=== PATIENT | male | born 1960 | race African-American/Black ===

== ENCOUNTER 2016-12-22 22:20 | Emergency (ER) | payer MEDICARE ==
[2016-12-22 22:35] VITALS: BP 152/99
[2016-12-23] MEDS ORDERED: HYDROCODONE/ACETAMINOPHEN 5-325 MG 6 TAB/DSPK PO PRN (00:05)
[2016-12-23] MEDS ORDERED: PENICILLIN V POTASSIUM 500 MG TABLET PO ONE (00:05)
[2016-12-23] MEDS ORDERED: OXYCODONE-ACETAMINOPHEN 5-325 MG TABLET PO ONE (00:05)
--- NOTE | 2016-12-23 00:06 | ER Document Report ---
ED Oral Problem - General Chief Complaint: Toothache Stated Complaint: TOOTHACHE Notes: Patient is a 48-year-old male that comes emergency department for chief complaint of toothache, states has been worsening for several days, states he has known dental caries with fillings that have fallen out specifically in the tooth is hurting in the left upper area in his mouth. Pain radiates to the left ear. Patient denies sore throat, fever, vomiting, neck pain. TRAVEL OUTSIDE OF THE [place] IN LAST 30 DAYS: No - Related Data Allergies/Adverse Reactions: No Known Allergies Allergy (Verified 10/29/15 11:45) Past Medical History - General Information source: Patient - Social History Smoking Status: Never Smoker Cigarette use (# per day): No Chew tobacco use (# tins/day): No Frequency of alcohol use: None Drug Abuse: None Lives with: Family Family History: Reviewed & Not Pertinent Patient has suicidal ideation: No Patient has homicidal ideation: No - Past Medical History Cardiac Medical History: Reports: Hx Hypercholesterolemia, Hx Hypertension Endocrine Medical History: Reports: Hx Diabetes Mellitus Type 2 Renal/ Medical History: Denies: Hx Peritoneal Dialysis - Immunizations Hx Diphtheria, Pertussis, Tetanus Vaccination: No Review of Systems - Review of Systems Constitutional: No symptoms reported EENT: See HPI Cardiovascular: No symptoms reported Respiratory: No symptoms reported Gastrointestinal: No symptoms reported Genitourinary: No symptoms reported Male Genitourinary: No symptoms reported Musculoskeletal: No symptoms reported Skin: No symptoms reported Hematologic/Lymphatic: No symptoms reported Neurological/Psychological: No symptoms reported Physical Exam - Vital signs Vitals: Temp Pulse Resp BP Pulse Ox 98.2 F 100 17 152/99 H 100 12/22/16 22:34 12/22/16 22:34 12/22/16 22:34 12/22/16 22:34 12/22/16 22:34 Interpretation: Normal - General General appearance: Appears well, Alert In distress: None - HEENT Head: Normocephalic, Atraumatic Eyes: Normal Conjunctiva: Normal Extraocular movements intact: Yes Eyelashes: Normal Pupils: PERRL Ears: Normal External canal: Normal Tympanic membrane: Normal Sinus: Normal Nasal: Normal Mouth/Lips: Normal Mucous membranes: Normal Teeth diagram: 1 - Dental caries with surrounding erythema of the gumline, no drainable abscess or other abnormalities noted in the mouth Pharynx: Normal Neck: Normal - Respiratory Respiratory status: No respiratory distress Chest status: Nontender Breath sounds: Normal. No: Decreased air movement, Wheezing Chest palpation: Normal - Cardiovascular Rhythm: Regular. No: Tachycardia Heart sounds: Normal auscultation, S1 appreciated, S2 appreciated Murmur: No - Abdominal Inspection: Normal Distension: No distension Bowel sounds: Normal Tenderness: Nontender Organomegaly: No organomegaly - Back Back: Normal, Nontender - Extremities General upper extremity: Normal inspection, Nontender, Normal color, Normal ROM , Normal temperature General lower extremity: Normal inspection, Nontender, Normal color, Normal ROM , Normal temperature, Normal weight bearing. No: Kristie's sign - Neurological Neuro grossly intact: Yes Cognition: Normal Orientation: AAOx4 Charleen Coma Scale Eye Opening: Spontaneous Charleen Coma Scale Verbal: Oriented [place] Coma Scale Motor: Obeys Commands Charleen Coma Scale Total: 15 Speech: Normal Motor strength normal: LUE, RUE, LLE, RLE Sensory: Normal - Psychological Associated symptoms: Normal affect, Normal mood - Skin Skin Temperature: Warm Skin Moisture: Dry Skin Color: Normal Course - Re-evaluation Re-evalutation: Examination is consistent with dental caries and surrounding erythema of the gumline, no other abnormalities noted, no evidence of Tony's angina, no other complaints by patient. Providing with antibiotics, pain medication, patient states he will follow closely with her dentist, discussed return precautions, patient states understanding and agreement. - Vital Signs Vital signs: Temp Pulse Resp BP Pulse Ox 98.2 F 100 17 152/99 H 100 12/22/16 22:34 12/22/16 22:34 12/22/16 22:34 12/22/16 22:34 12/22/16 22:34 Discharge - Discharge Clinical Impression: Pain, dental Condition: Stable Disposition: HOME, SELF-CARE Additional Instructions: Please take antibiotics as directed, take pain medication if needed, take a stool softener [id number] to avoid constipation if you're taking the pain medication. Follow-up with a dentist for repair. Return to the emergency department for any concerning or worsening symptoms including swelling of the face, difficulty swallowing, fever, etc. Prescriptions: Oxycodone HCl/Acetaminophen [Percocet 5-325 mg Tablet] 1 - 2 tab PO Q4H PRN #15 tablet PRN Reason: Penicillin V Potassium [Penicillin Vk 500 mg Tablet] 500 mg PO BID #20 tablet
== END 2016-12-23 01:01 | disposition home or self-care (01) ==
LOC: ER 22:20
DX: K02.9 Dental caries, unspecified (principal); K08.89 Other specified disorders of teeth and supporting structures; E11.9 Type 2 diabetes mellitus without complications; I10 Essential (primary) hypertension
CPT/HCPCS: 99282; A9270 ×3